=== PATIENT | female | born 2000 | race Two or more races ===

== ENCOUNTER 2024-12-25 17:28 | Emergency (ER) | payer BC, MEDICAID ==
[~2024-12-25] VITALS: Ht 175.3 cm; Wt 72.7 kg
[2024-12-25 17:36] VITALS: TEMP 98.2
[2024-12-25 17:55] LABS: COVID AG,FIA SOURCE NASAL SWAB
[2024-12-25 18:14] LABS: RAPID GROUP A STREP POSITIVE (NEGATIVE)
[2024-12-25 18:16] LABS: INFLUENZA TYPE A NEGATIVE FOR TYPE A (NEGATIVE); INFLUENZA TYPE B NEGATIVE FOR TYPE B (NEGATIVE)
[2024-12-25 18:17] LABS: SARS-COV2 (COVID) ANTIGEN,FIA Negative (Negative)
[2024-12-25] MEDS ORDERED: AMOX500C2 PO (20:39)
[2024-12-25 20:55] VITALS: BP 118/62; PULSE 63; RESP 18; O2SAT 98
[2024-12-25] MEDS: AMOXICILLIN TRIHYDRATE 250 MG CAPSULE PO ONE (20:59)
[2024-12-25] MEDS: dexAMETHasone 4 MG TABLET PO ONE (20:59)
== END 2024-12-25 21:10 | disposition home or self-care (01) ==
LOC: EMS 17:28
DX: J02.0 Streptococcal pharyngitis (principal); F17.210 Nicotine dependence, cigarettes, uncomplicated; F10.90 Alcohol use, unspecified, uncomplicated; Z91.018 Allergy to other foods; Z20.822 Contact with and (suspected) exposure to COVID-19; Y90.9 Presence of alcohol in blood, level not specified
CPT/HCPCS: 99283; 87426; 87430; 87804; J8540